=== PATIENT | female | born 1985 | race Caucasian/White ===

== ENCOUNTER → 2025-05-14 10:38 | Outpatient (BNVA) | payer BC, SELFPAY | PROVIDERS: Visit Provider Podiatrist Foot & Ankle Surgery | DX: M79.672 Pain in left foot (principal); R22.42 Localized swelling, mass and lump, left lower limb | CPT/HCPCS: 73630 ==

== ENCOUNTER 2025-06-04 12:45 | Outpatient (CLI) | payer BC, SELFPAY ==
--- NOTE | 2025-06-04 13:00 | MR_ITS ---
WS: [id number] EXAMINATION: MR foot LT wo con* [id number] ORDER DATE: 06/04/2025 1:17 PM HISTORY: soft tissue nodule CONTRAST: None. TECHNIQUE: Sagittal T1, sagittal STIR, coronal PD, coronal T2, axial T1, axial T2, and axial PD imaging with fat saturation technique. FINDINGS: Palpable marker overlying the plantar surface of the foot in the area of the second and third middle and distal phalanges. Signal loss involving the distal toes. No definite soft tissue abnormalities in the area of concern although somewhat poorly visualized distally. Recommend clinical correlation. Otherwise normal bone marrow signal. Normal visualized metatarsals. Normal anatomic alignment. No other remarkable findings. MR/MR foot LT wo con* [id number] IMPRESSION: No definite soft tissue abnormalities in the area of concern although signal lo ss distally with poor evaluation of the distal phalanges
== END 2025-06-04 12:46 | disposition home or self-care (01) ==
LOC: RAD 12:46
PROVIDERS: PCP Family Medicine; Visit Provider Podiatrist Foot & Ankle Surgery
DX: R22.42 Localized swelling, mass and lump, left lower limb (principal)
CPT/HCPCS: 73718